=== PATIENT | male | born 1995 | race Caucasian/White ===

== ENCOUNTER 2017-06-26 11:23 | Emergency (ER) | payer SELFPAY ==
[~2017-06-26] VITALS: Ht 167.6 cm; Wt 59.0 kg
[~2017-06-26 11:23] MED LIST: CIPR500T4 PO; LISD30CA; MELA1TAB9; [UNRECOGNIZED DRUG - REMARK]
--- OUTSIDE RECORDS SUMMARY | 2017-06-26 11:29 | XMS REPORT ---
Author Author KRISTYN GODOY Organization [employer] Address Unknown Phone Unavailable Care Team Providers Care [employer] Name Role Phone KRISTYN GODOY CP Unavailable Allergies, Adverse Reactions, Alerts Substance Reaction Event Type N.K.D.A. Info Not Available Non Drug Allergy Problems Problem Type Condition Code Onset Dates Condition Status Problem Bipolar disorder, unspecified 296.80 Active Assessment General medical exam Z00.00 Active Problem Health examination of defined subpopulation V70.5 Active Assessment History of ADHD Z86.59 Active Medications No Known Medications Procedures Procedure Coding System Code Date VISUAL ACUITY SCREEN CPT-4 17361 Aug 25, 2015 Office Visit, Est Pt., Level 3 CPT-4 83479 Aug 25, 2015 AUDIOMETRY-SCREEN CPT-4 53224 Aug 25, 2015 Vital Signs Date/Time: Aug 25, 2015 Temperature 97.9 F Weight 128.1 lbs Height 66 in Hearing Right ear: 1000:P, 2000:P, 4000:P, 6000:P, Left ear: 1000:P, 2000:P, 4000:P, 6000:P P / L Blood Pressure Diastolic 68 mmHg Blood Pressure Systolic 106 mmHg Cardiac Monitoring Heart Rate 70 bpm BMI 20.67 Index Results No Known Results Summary Purpose [employer] Submission
--- NOTE | 2017-06-26 11:42 | ED Integumentary General ---
General Chief Complaint: Allergic Reaction Stated Complaint: ALLERGIC REACTION RIGHT EYE SWELLING, MOUTH SWELLI Nursing Triage Note: c/o hives and facial swelling. Denies difficulty breathing. Onset last night. Spent the night at a friends house. Source: patient Exam Limitations: no limitations History of Present Illness Time seen by provider: 11:40 Initial Comments To ER with reports of facial swelling and allergic reaction. This began last night. He spent the night at a friend's house. Timing/Duration: this morning Allergies and Home Medications Allergies Coded Allergies: NKANo Known Allergies (Verified Allergy, Unknown, 12/30/08) Home Medications Ciprofloxacin HCl 500 Mg Tablet, 500 MG PO BID, #13 Ref 0 Prescribed by: DULCE MARIA PIERCE on 08/06/16 0229 Constitutional: see HPI EENTM: see HPI Respiratory: no symptoms reported Cardiovascular: no symptoms reported Genitourinary: no symptoms reported Musculoskeletal: no symptoms reported Skin: see HPI Psychiatric/Neurological: No Symptoms Reported Endocrine: No Symptoms Reported Hematologic/Lymphatic: No Symptoms Reported Past Nqskguy-Drmlre-Jbnsdq Hx Patient Social History Alcohol Use: Occasionally Uses Recreational Drug Use: No Smoking Status: Current Everyday Smoker Type Used: Cigarettes Recent Foreign Travel: No Contact w/Someone Who Travel: No Recent Infectious Disease Expo: No Recent Hopitalizations: No Seasonal Allergies Seasonal Allergies: No Surgeries History of Surgeries: Yes (LYMPH NODE REMOVAL) Respiratory History of Respiratory Disorde: No Cardiovascular History of Cardiac Disorders: No Neurological History of Neurological Disord: No Reproductive System Hx Reproductive Disorders: No Sexually Transmitted Disease: No Gastrointestinal History of Gastrointestinal Di: No Musculoskeletal History of Musculoskeletal Dis: No Endocrine History of Endocrine Disorders: No Blood Transfusions History of Blood Disorders: No Family Medical History Significant Family History: No Pertinent Family Hx Physical Exam Vital Signs Vital Sign - Last 12Hours 06/26/17 11:34 Temp 98.1 Pulse 70 Resp 18 B/P (MAP) 109/81 Pulse Ox 98 O2 Delivery Room Air Capillary Refill : Less Than 3 Seconds General Appearance: WD/WN, no apparent distress HEENT: PERRL/EOMI, normal ENT inspection Neck: non-tender, full range of motion Respiratory: normal breath sounds, no respiratory distress, no accessory muscle use Gastrointestinal: normal bowel sounds, non tender, soft Neurologic/Psychiatric: alert, normal mood/affect, oriented x 3 Skin: normal color, warm/dry Skin Problem Character: other (linear groupings of erythematous papules about 1 cm in diameter consistent with bedbug bites on each of his scapula. There is one on his right eyebrow and forehead.) Progress/Results/Core Measures Results/Orders Vital Signs/I&O Vital Sign - Last 12Hours 06/26/17 11:34 Temp 98.1 Pulse 70 Resp 18 B/P (MAP) 109/81 Pulse Ox 98 O2 Delivery Room Air Blood Pressure Mean: 90 Departure Impression Impression: Primary Impression: Bedbug bite Disposition: HOME, SELF-CARE Condition: Stable Departure-Patient Inst. Decision time for Depature: 11:42 Referrals: NO,LOCAL PHYSICIAN (PCP/Family) Primary Care Physician Patient Instructions: Insect Bites and Stings (DC) Add. Discharge Instructions: 1. You should have your house checked and sprayed for bedbug 2. You should use [id number] topical hydrocortisone cream applied to these bites as well 3. Return to ER for any concerns 4. Use Benadryl [id number] as needed for itching All discharge instructions reviewed with patient and/or family. Voiced understanding. WILNER HIGGINBOTHAM APRN Jun 26, 2017 11:42
[2017-06-26] MEDS ORDERED: diphenhydrAMINE 50 MG/ML INJ (BENADRYL) IM ONE (11:45)
[2017-06-26] MEDS ORDERED: DEXAMETHASONE 10 MG/ML (DECADRON) 1 ML VIAL ONE (11:45)
[2017-06-26] MEDS ORDERED: DEXAMETHASONE PF 10 MG/ML (DECADRON) VIAL IM ONE (11:45)
[2017-06-26 12:07] VITALS: BP 106/80
== END 2017-06-26 12:07 | disposition home or self-care (01) ==
LOC: EDUNIT# 11:23 → ER 11:25
DX: S00.86XA Insect bite (nonvenomous) of other part of head, initial encounter (principal); F17.210 Nicotine dependence, cigarettes, uncomplicated; W57.XXXA Bitten or stung by nonvenomous insect and other nonvenomous arthropods, initial encounter
CPT/HCPCS: 96372; 99284

== ENCOUNTER 2017-10-15 16:00 | Emergency (ER) | payer SELFPAY ==
[~2017-10-15] VITALS: Ht 167.6 cm; Wt 54.4 kg
--- OUTSIDE RECORDS SUMMARY | 2017-10-15 16:05 | XMS REPORT | Continuity of Care Document ---
Author Author [facility] Address Unknown Phone Unavailable Allergies Active Description Code Type Severity Reaction Onset Reported/Identified Relationship to Patient Clinical Status Yes NKANo Known Allergies NKA Miscellaneous Allergy Unknown N/A 12/30/2008 Medications There is no data. Problems Date Dx Coded Attending Type Code Diagnosis Diagnosed By 08/11/2008 KOFI WRIGHT APRN 461.9 SINUSITIS ACUTE 08/11/2008 KOFI WRIGHT APRN 786.2 COUGH 12/02/2008 KOFI WRIGHT APRN 785.6 swollen glands in the neck 12/02/2008 KOFI WRIGHT APRN 786.05 shortness of breath 04/09/2009 KOFI WRIGHT APRN 813.05 CLOSED FRACTURE OF HEAD OF RADIUS 04/09/2009 KOFI WRIGHT APRN 910.0 ABRASION OR FRICTION BURN OF FACE NECK AND SCALP EXCEPT EYE WITHOUT INFECTION 04/09/2009 KOFI WRIGHT APRN 912.0 ABRASION OR FRICTION BURN OF SHOULDER AND UPPER ARM WITHOUT INFECTION 05/12/2009 KOFI WRIGHT APRN 313.81 OPPOSITIONAL DEFIANT DISORDER OF CHILDHOOD 05/12/2009 KOFI WRIGHT APRN 314.01 ADHD, COMBINED TYPE 05/12/2009 KOFI WRIGHT APRN 780.2 PRESYNCOPE SYNDROME 05/12/2009 KOFI WRIGHT APRN V03.89 MENINGOCOCCAL, OTHER SPECIFIED SINGLE BACTERIAL DISEASE 05/12/2009 KOFI WRIGHT APRN V05.3 HEPATITIS VIRAL/ALL 05/12/2009 KOFI WRIGHT APRN V20.2 visit for: well child visit 12/26/2009 KOFI WRIGHT APRN V70.3 SPORTS/SCHOOL EXAM 09/20/2012 KOFI WRIGHT APRN 296.80 MO BIPOLAR NOS 12/21/2015 EDER RODRIGUEZ, MYRON Emmanuel Ot S81.851A OPEN BITE, RIGHT LOWER LEG, INITIAL ENCO 12/21/2015 EDER RODRIGUEZ, MYRON Emmanuel Ot W57.XXXA BIT/STUNG BY NONVENOM INSECT OTH NONVE 12/21/2015 EDER RODRIGUEZ, MYRON Emmanuel Ot Y99.8 OTHER EXTERNAL CAUSE STATUS 08/06/2016 DULCE MARIA PIERCE MD Ot F17.210 NICOTINE DEPENDENCE, CIGARETTES, UNCOMPL 08/06/2016 DULCE MARIA PIERCE MD Ot N20.0 CALCULUS OF KIDNEY 08/06/2016 DULCE MARIA PIERCE MD Ot N39.0 URINARY TRACT INFECTION, SITE NOT SPECIF 08/06/2016 DULCE MARIA PIERCE MD Ot R31.0 GROSS HEMATURIA 09/26/2016 ADEBAYO RODRIGUEZ, REG Galvez Ot F17.210 NICOTINE DEPENDENCE, CIGARETTES, UNCOMPL 09/26/2016 ADEBAYO RODRIGUEZ, REG Galvez Ot N13.2 HYDRONEPHROSIS WITH RENAL AND URETERAL C 09/26/2016 ADEBAYO RODRIGUEZ, REG Galvez Ot R10.31 RIGHT LOWER QUADRANT PAIN 09/26/2016 REG FIORE MD Ot R31.9 HEMATURIA, UNSPECIFIED 09/27/2016 ADEBAYO RODRIGUEZ, REG Galvez Ot F17.210 NICOTINE DEPENDENCE, CIGARETTES, UNCOMPL 09/27/2016 ADEBAYO RODRIGUEZ, REG Galvez Ot N13.2 HYDRONEPHROSIS WITH RENAL AND URETERAL C 09/27/2016 REG FIORE MD Ot R10.31 RIGHT LOWER QUADRANT PAIN 09/27/2016 ADEBAYO RODRIGUEZ, REG Galvez Ot R31.9 HEMATURIA, UNSPECIFIED 06/26/2017 WILNER HIGGINBOTHAM APRN Ot F17.210 NICOTINE DEPENDENCE, CIGARETTES, UNCOMPL 06/26/2017 WILNER HIGGINBOTHAM APRN Ot L50.9 URTICARIA, UNSPECIFIED 06/26/2017 WILNER HIGGINBOTHAM APRN Ot S00.86XA INSECT BITE (NONVENOMOUS) OF OTHER PART 06/26/2017 WILNER HIGGINBOTHAM APRN Ot W57.XXXA BIT/STUNG BY NONVENOM INSECT OTH NONVE Procedures Code [place] [address] PSYCH DIAG INTER EXAM 09/20/2012 Results Test Result Range Complete urinalysis with reflex to culture - 08/06/16 00:57 Urine color determination RED NRG Urine clarity determination SLIGHTLY CLOUDY NRG Urine pH measurement by test strip 8 5-9 Specific gravity of urine by test strip 1.015 1.016- 1.022 Urine protein assay by test strip, semi-quantitative 3+ NEGATIVE Urine glucose detection by automated test strip NEGATIVE NEGATIVE Erythrocytes detection in urine sediment by light microscopy 5+ NEGATIVE Urine ketones detection by automated test strip NEGATIVE NEGATIVE Urine nitrite detection by test strip NEGATIVE NEGATIVE Urine total bilirubin detection by test strip NEGATIVE NEGATIVE Urine urobilinogen measurement by automated test strip (mass/volume) 1 mg/dL NORMAL Urine leukocyte esterase detection by dipstick 2+ NEGATIVE Automated urine sediment erythrocyte count by microscopy (number/high power field) TNTC NRG Automated urine sediment leukocyte count by microscopy (number/high power field ) [HPF] NRG Bacteria detection in urine sediment by light microscopy TRACE NRG Squamous epithelial cells detection in urine sediment by light microscopy 0-2 NRG Crystals detection in urine sediment by light microscopy NONE NRG Casts detection in urine sediment by light microscopy NONE NRG Mucus detection in urine sediment by light microscopy NEGATIVE NRG Complete urinalysis with reflex to culture NO NRG Complete blood count (CBC) with automated white blood cell (WBC) differential - 08/06/16 01:30 Blood leukocytes automated count (number/volume) 7.0 10*3/uL 4.3-11.0 Blood erythrocytes automated count (number/volume) 5.39 10*6/uL 4.35-5.85 Venous blood hemoglobin measurement (mass/volume) 14.2 g/dL 13.3-17.7 Blood hematocrit (volume fraction) 43 % 40-54 Automated erythrocyte mean corpuscular volume 79 [foz_us] 80-99 Automated erythrocyte mean corpuscular hemoglobin (mass per erythrocyte) 26 pg 25-34 Automated erythrocyte mean corpuscular hemoglobin concentration measurement ( mass/volume) 33 g/dL 32-36 Automated erythrocyte distribution width ratio 14.1 % 10.0-14.5 Automated blood platelet count (count/volume) 171 10*3/uL 130-400 Automated blood platelet mean volume measurement 11.3 [foz_us] 7.4-10.4 Automated blood neutrophils/100 leukocytes 54 % 42-75 Automated blood lymphocytes/100 leukocytes 38 % 12-44 Blood monocytes/100 leukocytes 6 % 0-12 Automated blood eosinophils/100 leukocytes 1 % 0-10 Automated blood basophils/100 leukocytes 1 % 0-10 Blood neutrophils automated count (number/volume) 3.8 10*3 1.8-7.8 Blood lymphocytes automated count (number/volume) 2.7 10*3 1.0-4.0 Blood monocytes automated count (number/volume) 0.4 10*3 0.0-1.0 Automated eosinophil count 0.1 10*3/uL 0.0-0.3 Automated blood basophil count (count/volume) 0.0 10*3/uL 0.0-0.1 Comprehensive metabolic panel - 08/06/16 01:30 Serum or plasma sodium measurement (moles/volume) 140 mmol/L 135-145 Serum or plasma potassium measurement (moles/volume) 3.8 mmol/L 3.6-5.0 Serum or plasma chloride measurement (moles/volume) 104 mmol/L 98-107 Carbon dioxide 26 mmol/L 21-32 Serum or plasma anion gap determination (moles/volume) 10 mmol/L 5-14 Serum or plasma urea nitrogen measurement (mass/volume) 12 mg/dL 7-18 Serum or plasma creatinine measurement (mass/volume) 1.03 mg/dL 0.60-1.30 Serum or plasma urea nitrogen/creatinine mass ratio 12 NRG Serum or plasma creatinine measurement with calculation of estimated glomerular filtration rate > NRG Serum or plasma glucose measurement (mass/volume) 72 mg/dL 70-105 Serum or plasma calcium measurement (mass/volume) 10.2 mg/dL 8.5-10.1 Serum or plasma total bilirubin measurement (mass/volume) 0.4 mg/dL 0.1-1.0 Serum or plasma alkaline phosphatase measurement (enzymatic activity/volume) 61 U/L 40-136 Serum or plasma aspartate aminotransferase measurement (enzymatic activity/ volume) 26 U/L 5-34 Serum or plasma alanine aminotransferase measurement (enzymatic activity/volume ) 20 U/L 0-55 Serum or plasma protein measurement (mass/volume) 7.9 g/dL 6.4-8.2 Serum or plasma albumin measurement (mass/volume) 4.9 g/dL 3.2-4.5 Complete blood count (CBC) with automated white blood cell (WBC) differential - 09/26/16 14:53 Blood leukocytes automated count (number/volume) 15.6 10*3/uL 4.3-11.0 Blood erythrocytes automated count (number/volume) 5.47 10*6/uL 4.35-5.85 Venous blood hemoglobin measurement (mass/volume) 14.3 g/dL 13.3-17.7 Blood hematocrit (volume fraction) 44 % 40-54 Automated erythrocyte mean corpuscular volume 80 [foz_us] 80-99 Automated erythrocyte mean corpuscular hemoglobin (mass per erythrocyte) 26 pg 25-34 Automated erythrocyte mean corpuscular hemoglobin concentration measurement ( mass/volume) 33 g/dL 32-36 Automated erythrocyte distribution width ratio 14.3 % 10.0-14.5 Automated blood platelet count (count/volume) 192 10*3/uL 130-400 Automated blood platelet mean volume measurement 11.4 [foz_us] 7.4-10.4 Automated blood neutrophils/100 leukocytes 79 % 42-75 Automated blood lymphocytes/100 leukocytes 14 % 12-44 Blood monocytes/100 leukocytes 6 % 0-12 Automated blood eosinophils/100 leukocytes 1 % 0-10 Automated blood basophils/100 leukocytes 0 % 0-10 Blood neutrophils automated count (number/volume) 12.3 10*3 1.8-7.8 Blood lymphocytes automated count (number/volume) 2.2 10*3 1.0-4.0 Blood monocytes automated count (number/volume) 0.9 10*3 0.0-1.0 Automated eosinophil count 0.2 10*3/uL 0.0-0.3 Automated blood basophil count (count/volume) 0.0 10*3/uL 0.0-0.1 Comprehensive metabolic panel - 09/26/16 14:53 Serum or plasma sodium measurement (moles/volume) 142 mmol/L 135-145 Serum or plasma potassium measurement (moles/volume) 3.8 mmol/L 3.6-5.0 Serum or plasma chloride measurement (moles/volume) 110 mmol/L 98-107 Carbon dioxide 24 mmol/L 21-32 Serum or plasma anion gap determination (moles/volume) 8 mmol/L 5-14 Serum or plasma urea nitrogen measurement (mass/volume) 18 mg/dL 7-18 Serum or plasma creatinine measurement (mass/volume) 1.06 mg/dL 0.60-1.30 Serum or plasma urea nitrogen/creatinine mass ratio 17 NRG Serum or plasma creatinine measurement with calculation of estimated glomerular filtration rate > NRG Serum or plasma glucose measurement (mass/volume) 103 mg/dL 70-105 Serum or plasma calcium measurement (mass/volume) 9.2 mg/dL 8.5-10.1 Serum or plasma total bilirubin measurement (mass/volume) 0.3 mg/dL 0.1-1.0 Serum or plasma alkaline phosphatase measurement (enzymatic activity/volume) 51 U/L 40-136 Serum or plasma aspartate aminotransferase measurement (enzymatic activity/ volume) 23 U/L 5-34 Serum or plasma alanine aminotransferase measurement (enzymatic activity/volume ) 16 U/L 0-55 Serum or plasma protein measurement (mass/volume) 7.3 g/dL 6.4-8.2 Serum or plasma albumin measurement (mass/volume) 4.3 g/dL 3.2-4.5 Lipase - 09/26/16 14:53 Lipase 20 U/L 8-78 Blood manual differential performed detection - 09/26/16 14:53 Blood monocytes/100 leukocytes 7 % NRG Manual blood segmented neutrophils/100 leukocytes 82 % NRG Blood band neutrophils/100 leukocytes 0 % NRG Manual blood lymphocytes/100 leukocytes 11 % NRG Manual eosinophils/100 leukocytes in nose 0 % NRG Manual blood basophils/100 leukocytes 0 % NRG Blood erythrocyte morphology finding identification NORMAL NRG Complete urinalysis with reflex to culture - 09/26/16 16:55 Urine color determination YELLOW NRG Urine clarity determination CLEAR NRG Urine pH measurement by test strip 5 5-9 Specific gravity of urine by test strip 1.010 1.016- 1.022 Urine protein assay by test strip, semi-quantitative 1+ NEGATIVE Urine glucose detection by automated test strip NEGATIVE NEGATIVE Erythrocytes detection in urine sediment by light microscopy 5+ NEGATIVE Urine ketones detection by automated test strip 1+ NEGATIVE Urine nitrite detection by test strip NEGATIVE NEGATIVE Urine total bilirubin detection by test strip NEGATIVE NEGATIVE Urine urobilinogen measurement by automated test strip (mass/volume) NORMAL NORMAL Urine leukocyte esterase detection by dipstick NEGATIVE NEGATIVE Automated urine sediment erythrocyte count by microscopy (number/high power field) [HPF] NRG Automated urine sediment leukocyte count by microscopy (number/high power field ) RARE NRG Bacteria detection in urine sediment by light microscopy NEGATIVE NRG Squamous epithelial cells detection in urine sediment by light microscopy 5-10 NRG Crystals detection in urine sediment by light microscopy NONE NRG Casts detection in urine sediment by light microscopy NONE NRG Mucus detection in urine sediment by light microscopy NEGATIVE NRG Complete urinalysis with reflex to culture NO NRG Encounters ACCT No. Visit Date/Time Discharge Status Pt. Type Provider Facility Loc./Unit Complaint [id number] 09/20/2012 09:49:00 09/20/2012 23:59:59 [facility] Outpatient WRIGHT NEPTALIKOFI [id number] 06/26/2017 11:25:00 06/26/2017 12:07:00 DIS Emergency WILNER HIGGINBOTHAM APRN [facility] ER ALLERGIC REACTION RIGHT EYE SWELLING, MOUTH SWELLI [id number] 09/26/2016 14:45:00 09/26/2016 17:51:00 DIS Emergency ADEBAYO RODRIGUEZ, REG Galvez [facility] ER SIDE PAIN/VOMITING [id number] 08/06/2016 00:53:00 08/06/2016 02:33:00 DIS Emergency STAN RODRIGUEZ, DULCE MARIA Elizabeth [facility] ER BLOOD IN URINE [id number] 12/21/2015 19:05:00 12/21/2015 21:41:00 DIS Emergency EDER RODRIGUEZ, MYRON Emmanuel [facility] ER POSS SPIDER BITES R LEG
[2017-10-15] MEDS ORDERED: ONDANSETRON 4 MG (ZOFRAN) ORAL DISSOLVE TAB SL STA (17:02)
--- NOTE | 2017-10-15 17:07 | ED GI ---
General Chief Complaint: Abdominal/GI Problems Stated Complaint: VOMITING/DIARRHEA Nursing Triage Note: pt c/o n/v/d with abd cramping since 0700. reports he had taco camejo last night at approx midnight. 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 Sepsis Screen: No Definite Risk Source of Information: Patient Exam Limitations: No Limitations History of Present Illness Time Seen By Provider: 17:07 Initial Comments 22-year-old male patient presents to the emergency department with complaints of nausea, vomiting, diarrhea, and generalized abdominal cramping starting at 0700 today. Patient reports eating to the camejo last night, but otherwise felt okay. He was able to drink 16 ounces of water just prior to coming to the emergency department without vomiting. Timing/Duration: Other (0700 this AM) Severity/Quality: Cramping Location: Generalized Abdomen Radiation: No Radiation Activities at Onset: None Modifying Factors: Worsens With Eating Allergies and Home Medications Allergies Coded Allergies: NKANo Known Allergies (Verified Allergy, Unknown, 12/30/08) Home Medications Hyoscyamine Sulfate 0.125 Mg Tab.subl, 0.125 MG SL Q4H PRN for CRAMPS, #14 Ref 0 Prescribed by: ELLA TAVARES on 10/15/171747 Ondansetron 8 Mg Tab.rapdis, 8 MG PO Q6H PRN for NAUSEA/VOMITING-1ST LINE, #10 Ref 0 Prescribed by: ELLA TAVARES on 10/15/171747 Review of Systems Constitutional: chills, No dizziness, No fever, malaise EENTM: No Symptoms Reported Respiratory: Denies Cough, Denies Shortness of Air Cardiovascular: No Symptoms Reported Gastrointestinal: Denies Abdomen Distended, Abdominal Pain (generalized abdominal cramping), Denies Blood Streaked Stools, Denies Constipated, Diarrhea , Nausea, Poor Appetite, Poor Fluid Intake, Denies Rectal Bleeding, Vomiting Genitourinary: Denies Burning, Denies Discharge, Denies Frequency, Denies Flank Pain, Denies Hematuria Musculoskeletal: no symptoms reported Skin: no symptoms reported Psychiatric/Neurological: No Symptoms Reported All Other Systems Reviewed Negative Unless Noted: Yes (Negative excepted noted.) Past Indiagn-Pgikan-Qlfqmb Hx Patient Social History Alcohol Use: Occasionally Uses Recreational Drug Use: No Smoking Status: Current Everyday Smoker Type Used: Cigarettes Recent Foreign Travel: No Contact w/Someone Who Travel: No Recent Infectious Disease Expo: No Recent Hopitalizations: No Physical Abuse: No Sexual Abuse: No Mistreated: No Fear: No Seasonal Allergies Seasonal Allergies: No Surgeries History of Surgeries: Yes (LYMPH NODE REMOVAL) Respiratory History of Respiratory Disorde: No Cardiovascular History of Cardiac Disorders: No Neurological History of Neurological Disord: Yes Neurological Disorders: Traumatic Brain Injury Reproductive System Hx Reproductive Disorders: No Sexually Transmitted Disease: No Genitourinary History of Genitourinary Disor: Yes Genitourinary Disorders: Kidney Stones Gastrointestinal History of Gastrointestinal Di: No Musculoskeletal History of Musculoskeletal Dis: No Endocrine History of Endocrine Disorders: No Psychosocial Suicide Risk Score: 0 Blood Transfusions History of Blood Disorders: No Reviewed Nursing Assessment Reviewed/Agree w Nursing PMH: Yes Family Medical History Significant Family History: No Pertinent Family Hx Physical Exam Vital Signs VS - Last 72 Hours, by Label 10/15/17 10/15/17 16:40 18:15 Temp 99.1 Pulse 80 84 Resp 16 16 B/P (MAP) 126/79 (95) Pulse Ox 98 Capillary Refill : Less Than 3 Seconds General Appearance: WD/WN, no apparent distress HEENT: PERRL/EOMI, pharynx normal Neck: supple, normal inspection Respiratory: lungs clear, normal breath sounds, no respiratory distress, no accessory muscle use Cardiovascular: normal peripheral pulses, regular rate, rhythm, no edema, no murmur Gastrointestinal: normal bowel sounds, non tender, soft, no organomegaly, No distended Extremities: no pedal edema, normal capillary refill Back: normal inspection, no CVA tenderness Neurologic/Psychiatric: alert, normal mood/affect, oriented x 3 Skin: normal color, warm/dry Progress/Results/Core Measures Results/Orders Lab Results Laboratory Tests Test 10/15/17 17:40 Range/Units Urine Color YELLOW Urine Clarity CLEAR Urine pH 6 5-9 Urine Specific [place] 1.015 L 1.016-1.022 Urine Protein 1+ H NEGATIVE Urine Glucose (UA) NEGATIVE NEGATIVE Urine Ketones NEGATIVE NEGATIVE Urine Nitrite NEGATIVE NEGATIVE Urine Bilirubin NEGATIVE NEGATIVE Urine Urobilinogen NORMAL NORMAL MG/DL Urine Leukocyte Esterase 1+ H NEGATIVE Urine RBC (Auto) NEGATIVE NEGATIVE Urine RBC NONE /HPF Urine WBC RARE /HPF Urine Squamous Epithelial Cells 10-25 H /HPF Urine Crystals NONE /LPF Urine Bacteria TRACE /HPF Urine Casts NONE /LPF Urine Mucus MODERATE H /LPF Urine Culture Indicated NO My Orders Orders - ELLA TAVARES Ua Culture If Indicated (10/15/17 17:02) Ondansetron Oral Dissolve Tab (Zofran (10/15/17 17:02) Hyoscyamine Sl Tablet (Levsin Sl Tablet) (10/15/17 17:15) Rx-Ondansetron Po (Rx-Zofran Po) (10/15/17 18:03) Rx-Hyoscyamine Tab (Rx-Levsin Sl) (10/15/17 18:03) Medications Given in ED Current Medications Medications Dose Ordered Sig/Marques Route Start Time Stop Time Status Last Admin Dose Admin Hyoscyamine Sulfate 0.125 mg ONCE ONCE SL 10/15/17 17:15 10/15/17 17:16 DC 10/15/17 17:10 0.125 MG Vital Signs/I&O Vital Sign - Last 12Hours 10/15/17 10/15/17 16:40 18:15 Temp 99.1 Pulse 80 84 Resp 16 16 B/P (MAP) 126/79 (95) Pulse Ox 98 Blood Pressure Mean: 95 Departure Communication (Admissions) Progress Notes patient seen and evaluated. Patient given 1 dose of Zofran and Levsin in the emergency department. No vomiting noted or diarrhea in the emergency department. Patient was able to drink without difficulty. Abdomen remained nontender. Proceed with discharge to home. Impression Impression: Primary Impression: Nausea, vomiting, and diarrhea Additional Impression: Abdominal cramping Disposition: 01 HOME, SELF-CARE Condition: Improved Departure-Patient Inst. Decision time for Depature: 17:46 Referrals: NO,LOCAL PHYSICIAN (PCP/Family) Primary Care Physician Patient Instructions: Dehydration, Adult (DC), [id number] Add. Discharge Instructions: All discharge instructions reviewed with patient and/or family. Voiced understanding. Medications as directed. Clear Liquid diet until symptoms improve, then increase diet slowly to a low-fat, bland diet. Tylenol extra strength over-the- counter as directed for pain. Ibuprofen 800 mg by mouth every 8 hours as needed for pain. Follow-up with your primary care provider for recheck as an outpatient if no improvement in symptoms. Return to the emergency department for worsened symptoms or any other concerns. Scripts Hyoscyamine Sulfate (Levsin-Sl) 0.125 Mg Tab.subl 0.125 MG SL Q4H Y for CRAMPS, #14 TAB 0 Refills Prov: ELLA TAVARES 10/15/17 Ondansetron (Ondansetron Odt) 8 Mg Tab.rapdis 8 MG PO Q6H Y for NAUSEA/VOMITING-1ST LINE, #10 TAB 0 Refills Prov: ELLA TAVARES 10/15/17 Work/School Note: Local Medical Staff Listing ELLA TAVARES Oct 15, 2017 17:07
[2017-10-15] MEDS ORDERED: HYOSCYAMINE 0.125 MG (LEVSIN) TAB SL ONE (17:15)
[2017-10-15 17:46] LABS: BILIRUBIN,URINE NEGATIVE (NEGATIVE); KETONES,URINE NEGATIVE (NEGATIVE); LEUKOCYTE ESTERASE ,URINE 1+ (NEGATIVE); NITRITE,URINE NEGATIVE (NEGATIVE); PH,URINE 6 (5-9); PROTEIN,URINE 1+ (NEGATIVE); UROBILINOGEN,URINE NORMAL (NORMAL)
[2017-10-15] MEDS ORDERED: ONDA8TAB13 PO (17:48)
[2017-10-15] MEDS ORDERED: HYOS0.1283 SL (17:48)
[2017-10-15 17:53] LABS: WBC,URINE RARE /HPF
[2017-10-15] MEDS ORDERED: RX-HYOSCYAMINE 0.125 MG SL (LEVSIN) PPK#6 SL STA (18:03)
[2017-10-15] MEDS ORDERED: RX-ONDANSETRON 4 MG ODT (ZOFRAN) PPK #4 PO STA (18:03)
[2017-10-15 18:15] VITALS: BP 118/79
== END 2017-10-15 18:15 | disposition home or self-care (01) ==
LOC: EDUNIT# 16:00 → ER 16:01
DX: R11.2 Nausea with vomiting, unspecified (principal); R19.7 Diarrhea, unspecified; R10.84 Generalized abdominal pain; F17.210 Nicotine dependence, cigarettes, uncomplicated; Z87.820 Personal history of traumatic brain injury; Z87.442 Personal history of urinary calculi
CPT/HCPCS: 81000; 99283

== ENCOUNTER → 2018-05-07 | Day surgery (SDC) | payer OTHER ==
[~2018-05-07] VITALS: Ht 170.2 cm; Wt 56.7 kg
[~2018-05-07] MED LIST changes: +HYOS0.1283 SL; +LACTATED RINGERS 1,000 ML IV ONE; +LACTATED RINGERS 1,000 ML IV STA; +MIDAZOLAM 2 MG/2 ML (VERSED) VIAL ONE; +ONDA8TAB13 PO; +ONDANSETRON 4 MG/2 ML (SDV) Z0FRAN ONE; +SEVOFLURANE (ULTANE) 15 ML INHAL SOLN ONE; +SUCCINYLCHOLINE INJ 100 MG/5 ML SYR ONE; +fentaNYL INJECTION 100 MCG/2 ML AMP ONE; +proPOfol 200 MG/20 ML (DIPRIVAN) VIAL IV ONE
--- OUTSIDE RECORDS SUMMARY | 2018-05-07 15:00 | XMS REPORT | Continuity of Care Document ---
Author Author [facility] C[facility] of [facility] Ctr [facility] Address Unknown Phone Unavailable Allergies Active [...] Procedures Code [place] [address] PSYCH DIAG INTER EXAM 09/20/2012 Results Test [...] with reflex to culture NO NRG Complete urinalysis with reflex to culture - 10/15/17 17:40 Urine color determination YELLOW NRG Urine clarity determination CLEAR NRG Urine pH measurement by test strip 6 5-9 Specific gravity of urine by test strip 1.015 1.016- 1.022 Urine protein assay by test strip, semi-quantitative 1+ NEGATIVE Urine glucose detection by automated test strip NEGATIVE NEGATIVE Erythrocytes detection in urine sediment by light microscopy NEGATIVE NEGATIVE Urine ketones detection by automated test strip NEGATIVE NEGATIVE Urine nitrite detection by test strip NEGATIVE NEGATIVE Urine total bilirubin detection by test strip NEGATIVE NEGATIVE Urine urobilinogen measurement by automated test strip (mass/volume) NORMAL NORMAL Urine leukocyte esterase detection by dipstick 1+ NEGATIVE Automated urine sediment erythrocyte count by microscopy (number/high power field) NONE NRG Automated urine sediment leukocyte count by microscopy (number/high power field ) RARE NRG Bacteria detection in urine sediment by light microscopy TRACE NRG Squamous epithelial cells detection in urine sediment by light microscopy 10-25 NRG Crystals detection in urine sediment by light microscopy NONE NRG Casts detection in urine sediment by light microscopy NONE NRG Mucus detection in urine sediment by light microscopy MODERATE NRG Complete urinalysis with reflex to culture NO NRG Encounters ACCT No. Visit Date/Time Discharge Status Pt. Type Provider Facility Loc./Unit Complaint [id number] 09/20/2012 09:49:00 09/20/2012 23:59:59 [facility] Outpatient KYLE GUNDERSONKOFI [id number] 10/15/2017 16:01:00 10/15/2017 18:15:00 DIS Emergency ELLA SUAREZ Via [facility] ER VOMITING/DIARRHEA [id number] 06/26/2017 11:25:00 06/26/2017 12:07:00 DIS Emergency WILNER HIGGINBOTHAM APRN Via [facility] ER ALLERGIC REACTION RIGHT EYE SWELLING, MOUTH SWELLI [id number] 09/26/2016 14:45:00 09/26/2016 17:51:00 DIS Emergency REG FIORE MD Via [facility] ER SIDE PAIN/VOMITING [id number] 08/06/2016 00:53:00 08/06/2016 02:33:00 DIS Emergency STAN RODRIGUEZ, DULCE MARIA Elizabeth Via [facility] ER BLOOD IN URINE [id number] 12/21/2015 19:05:00 12/21/2015 21:41:00 DIS Emergency EDER RODRIGUEZ, MYRON Emmanuel Via [facility] ER POSS SPIDER BITES R LEG
--- NOTE | 2018-05-07 15:43 | ED GI ---
General Chief Complaint: Foreign Body Stated Complaint: SWALLOWED A SCREW Source of Information: Patient Exam Limitations: No Limitations History of Present Illness Date Seen by Provider: May 07, 2018 Time Seen by Provider: 15:42 Initial Comments to ER by private vehicle with reports of having swallowed a screw about 1-1.5 inches in length 2 hours prior to arrival. No abdominal pain. No vomiting. this was accidental. He had the screw in his mouth and forgot about it then took a drink of water. Timing/Duration: 1-3 Hours Severity/Quality: Moderate Radiation: No Radiation Activities at Onset: None Associated Symptoms: Denies Symptoms Allergies and Home Medications Allergies Coded Allergies: NKANo Known Allergies (Verified Allergy, Unknown, 12/30/08) Home Medications Hyoscyamine Sulfate 0.125 Mg Tab.subl, 0.125 MG SL Q4H PRN for CRAMPS Prescribed by: ELLA TAVARES on 10/15/171747 Ondansetron 8 Mg Tab.rapdis, 8 MG PO Q6H PRN for NAUSEA/VOMITING-1ST LINE Prescribed by: ELLA TAVARES on 10/15/171747 Patient Home Medication List Home Medication List Reviewed: Yes Review of Systems Constitutional: see HPI EENTM: No Symptoms Reported Respiratory: No Symptoms Reported Cardiovascular: No Symptoms Reported Gastrointestinal: No Symptoms Reported Genitourinary: No Symptoms Reported Skin: no symptoms reported Psychiatric/Neurological: No Symptoms Reported Endocrine: No Symptoms Reported Hematologic/Lymphatic: No Symptoms Reported Past Hufwmkb-Kbigfe-Vsoirs Hx Patient Social History Type Used: Cigarettes Recent Foreign Travel: No Contact w/Someone Who Travel: No Recent Hopitalizations: No Seasonal Allergies Seasonal Allergies: No Past Medical History Surgeries: Yes (LYMPH NODE REMOVAL) Respiratory: No Cardiac: No Neurological: Yes Traumatic Brain Injury Reproductive Disorders: No Sexually Transmitted Disease: No Genitourinary: Yes Kidney Stones Gastrointestinal: No Musculoskeletal: No Endocrine: No Blood Disorders: No Family Medical History No Pertinent Family Hx Physical Exam Vital Signs Vital Signs - First Documented 05/07/18 15:39 Temp 96.9 Pulse 89 Resp 14 B/P (MAP) 104/66 (79) Pulse Ox 98 O2 Delivery Room Air Capillary Refill : Height/Weight/BMI Height: 5'6.00" Weight: 120lbs. oz. 54.571876pe; 18.79 BMI Method:Stated General Appearance: WD/WN, no apparent distress HEENT: PERRL/EOMI, normal ENT inspection Neck: non-tender, full range of motion Respiratory: no respiratory distress, no accessory muscle use Cardiovascular: regular rate, rhythm, no murmur Gastrointestinal: normal bowel sounds, non tender, soft Extremities: normal range of motion, non-tender Neurologic/Psychiatric: alert, normal mood/affect, oriented x 3 Skin: normal color, warm/dry Progress/Results/Core Measures Results/Orders My Orders Orders - WILNER HIGGINBOTHAM APRN Acute Abd Series (05/07/18 15:41) Iv Heplock-Insert (Order) (05/07/18 16:01) Vital Signs/I&O 05/07/18 15:39 Temp 96.9 Pulse 89 Resp 14 B/P (MAP) 104/66 (79) Pulse Ox 98 O2 Delivery Room Air Diagnostic Imaging Diagonstic Imaging: Xray Comments NAME: BARNEY ALLISON [facility] REC#: [id number] PT STATUS: REG ER : 1995 PHYSICIAN: WILNER HIGGINBOTHAM APRN ADMIT DATE: 05/07/18/ER Draft Date of Exam:05/07/18 ACUTE ABD SERIES EXAM: ACUTE ABD SERIES INDICATION: Swallowed screw at work. COMPARISON: CT abdomen pelvis with IV contrast 09/26/2016. FINDINGS: Radiopaque metallic foreign body in the stomach consistent with the screw. Nonspecific bowel gas pattern. No free intraperitoneal air. Normal heart size and pulmonary vascularity. No focal pulmonary opacity, pleural effusion or pneumothorax. No acute osseous findings. IMPRESSION: Metallic screw within the stomach. Nonspecific bowel gas pattern. Dictated on workstation # [id number] Dict: 05/07/18 1601 Trans: 05/07/18 1609 [facility] [id number] Interpreted by: TRISTON MAYES MD Electronically signed by: Departure Communication (Admissions) I relayed the x-ray findings to Dr. Kirkpatrick on-call for surgery. Plan to keep the patient here nothing by mouth and call endoscopy for an EGD. Impression Primary Impression: Foreign body in stomach Disposition: ADMITTED INPATIENT Condition: Stable Departure-Patient Inst. Referrals: NO,LOCAL PHYSICIAN (PCP/Family) Primary Care Physician WILNER HIGGINBOTHAM APRN May 07, 2018 15:43
--- NOTE | 2018-05-07 16:09 | Diagnostic Imaging Report ---
EXAM: ACUTE ABD SERIES INDICATION: Swallowed screw at work. COMPARISON: CT abdomen pelvis with IV contrast 09/26/2016. FINDINGS: Radiopaque metallic foreign body in the stomach consistent with the screw. Nonspecific bowel gas pattern. No free intraperitoneal air. Normal heart size and pulmonary vascularity. No focal pulmonary opacity, pleural effusion or pneumothorax. No acute osseous findings. IMPRESSION: Metallic screw within the stomach. Nonspecific bowel gas pattern. Dictated by: Dictated on workstation # [id number]
--- OUTSIDE RECORDS SUMMARY | 2018-05-07 16:49 | XMS REPORT | Continuity of Care Document ---
Author Author [facility] of [facility] Ctr [facility] Address Unknown Phone Unavailable Allergies Active Description [...] Procedures Code [place] [address] PSYCH DIAG INTER EXAM 09/20/2012 Results Test [...] Status Pt. Type Provider Facility Loc./Unit Complaint [id number] 09/20/2012 09:49:00 09/20/2012 23:59:59 [facility] Outpatient KYLE GUNDERSONKOFI [id number] 10/15/2017 16:01:00 10/15/2017 18:15:00 DIS Emergency ELLA SUAREZ Via [facility] ER VOMITING/DIARRHEA [id number] 06/26/2017 11:25:00 06/26/2017 12:07:00 DIS Emergency WILNER HIGGINBOTHAM APRN Via [facility] ER ALLERGIC REACTION RIGHT EYE SWELLING, MOUTH SWELLI [id number] 09/26/2016 14:45:00 09/26/2016 17:51:00 DIS Emergency REG FIORE MD Via [facility] ER SIDE PAIN/VOMITING [id number] 08/06/2016 00:53:00 08/06/2016 02:33:00 DIS Emergency STAN RODRIGUEZ, DULCE MARIA Elizabeth Via [facility] ER BLOOD IN URINE [id number] 12/21/2015 19:05:00 12/21/2015 21:41:00 DIS Emergency EDER RODRIGUEZ, MYRON Emmanuel Via [facility] ER POSS SPIDER BITES R LEG
[2018-05-07 18:20] VITALS: BP 105/70
[2018-05-07 18:45] VITALS: BP 108/71
[2018-05-07 18:50] VITALS: BP 108/71
--- NOTE | 2018-05-07 19:17 | Consultation ---
History of Present Illness History of Present Illness Patient Consulted On(cameron/time) 05/07/18 16:50 Date Seen by Provider: May 07, 2018 Time Seen by Provider: 16:50 History of Present Illness consult requested by Jayy Skinner for foreign body stomach. Patient is a 23 year old male who had a screw in his mouth and took a drink of water and accidentally swallowed the screw. Patient is not having any pain swallowing or in his abdomen. He has no other complaints. This occurred about 3 hours prior to me seeing him. He denies any nausea vomiting fever sweats chills shortness of breath or chest pain. I reviewed x rays demonstrating the foreign body in the stomach. Allergies and Home Medications Allergies Coded Allergies: NKANo Known Allergies (Verified Allergy, Unknown, 12/30/08) Home Medications Hyoscyamine Sulfate 0.125 Mg Tab.subl, 0.125 MG SL Q4H PRN for CRAMPS Prescribed by: ELLA TAVARES on 10/15/171747 Ondansetron 8 Mg Tab.rapdis, 8 MG PO Q6H PRN for NAUSEA/VOMITING-1ST LINE Prescribed by: ELLA TAVARES on 10/15/171747 Patient Home Medication List Home Medication List Reviewed: Yes Past Ojsvqce-Ivkqeb-Zrzukw Hx Patient Social History Alcohol Use: Rarely Uses Recreational Drug Use: No Smoking Status: Current Everyday Smoker Type Used: Cigarettes Recent Foreign Travel: No Contact w/Someone Who Travel: No Recent Infectious Disease Expo: No Recent Hopitalizations: No Seasonal Allergies Seasonal Allergies: No Surgeries History of Surgeries: Yes (LYMPH NODE REMOVAL) Respiratory History of Respiratory Disorde: No Cardiovascular History of Cardiac Disorders: No Neurological History of Neurological Disord: Yes Neurological Disorders: Traumatic Brain Injury Reproductive System Hx Reproductive Disorders: No Sexually Transmitted Disease: No Genitourinary History of Genitourinary Disor: Yes Genitourinary Disorders: Kidney Stones Gastrointestinal History of Gastrointestinal Di: No Musculoskeletal History of Musculoskeletal Dis: No Endocrine History of Endocrine Disorders: No HEENT History of HEENT Disorders: No Cancer History of Cancer: No Psychosocial History of Psychiatric Problem: No Blood Transfusions History of Blood Disorders: No Family Medical History Significant Family History: No Pertinent Family Hx Review of Systems-General All Other Systems Reviewed Negative Unless Noted: Yes (Negative excepted noted.) Physical Exam-General Problems Physical Exam Vital Signs Vital Signs - First Documented 05/07/18 05/07/18 15:39 16:48 Temp 96.9 Pulse 89 Resp 14 B/P (MAP) 104/66 (79) Pulse Ox 98 O2 Delivery Room Air O2 Flow Rate 0 Capillary Refill : Less Than 3 Seconds General Appearance: no apparent distress HEENT: PERRL/EOMI Neck: supple Respiratory: no respiratory distress, no accessory muscle use Cardiovascular: regular rate, rhythm Gastrointestinal: non tender, soft Back: normal inspection Extremities: normal inspection Neurologic/Psychiatric: alert, normal mood/affect Skin: warm/dry Lymphatic: no adenopathy Assessment/Plan Assessment/Plan Assessment/Plan ingestion of foreign body in stomach. patient 23 yr old male with screw in stomach. it appears to be still in the stomach from x rays. Patient was explained risks and benefits of EGD with retrieval he understands risks and benefits and wishes to proceed. To endoscopy for procedure. All questions were answered. MILADY ALMANZA DO May 07, 2018 19:17
--- NOTE | 2018-05-07 19:23 | Progress Note-Post Operative ---
Post-Operative Progess Note Surgeon (s)/Historic Sites Registrar (s) Surgeon MILADY ALMANZA DO Historic Sites Registrar: na Pre-Operative Diagnosis foreign body stomach Post-Operative Diagnosis same Procedure & Operative Findings Date of Procedure 05/07/18 Procedure Performed/Findings egd with retrieval foreign body of stomach Anesthesia Type general Estimated Blood Loss Estimated blood loss (mL): none Specimens/Packing Specimens Removed na MILADY ALMANZA DO May 07, 2018 19:23
--- NOTE | 2018-05-07 23:24 | OPERATIVE REPORT ---
DATE OF SERVICE: 05/07/2018 PREOPERATIVE DIAGNOSIS: Foreign body in stomach. POSTOPERATIVE DIAGNOSIS: Foreign body in stomach. PROCEDURE: EGD removal of foreign body of the stomach. SURGEON: DO Kaya. ANESTHESIA: General. ESTIMATED BLOOD LOSS: None. COMPLICATIONS: None. INDICATIONS: The patient is a 23-year-old male with a screw in his mouth took drink of water, swallowed the screw. The patient was brought to the Emergency Department for further evaluation. X-rays demonstrating the screw to be still in the stomach. Therefore, he was explained risks and benefits of having EGD and possible removal of foreign body. He understands risks and benefits and wished to proceed. Consent was signed in the chart. PROCEDURE: The patient was taken to the endoscopy suite, placed in the supine position. He was intubated for airway protection. The timeout was performed. Scope was inserted in mouth, down the esophagus and stomach where small amount of digestive food was present, which had to be irrigated and suctioned. The screw was able to be visualized within the stomach. A Basurto basket was then used to secure the screw and with the tip distally was then slowly removed completely from the patient. Once the Basurto basket was removed, the scope was then reinserted into the mouth down the esophagus into the stomach and into the duodenum without difficulty. There were no polyps, masses or ulcerations within the duodenum. Scope was slowly retracted back into the stomach, which was insufflated noting no other pathology. Scope was retroflexed noting no other pathology. Scope was returned to its normal position, withdrawn slowly. No polyps, mass or ulcerations within the esophagus. No injury visible. Scope was slowly retracted until completely removed. The patient tolerated procedure well without any complications and taken to recovery room in stable condition. Job ID: [id number] DocumentID: [id number] Dictated Date: 05/07/2018 19:27:06 Athletic Instructor Date: 05/07/2018 23:23:39 Dictated By: MILADY ALMANZA DO [facility]
== END | disposition home or self-care (01) ==
LOC: EDUNIT# 14:52 → ER 14:55 → ENDO 16:42
PROVIDERS: ATTEND Surgery
DX: T18.2XXA Foreign body in stomach, initial encounter (principal); F17.210 Nicotine dependence, cigarettes, uncomplicated; Z87.820 Personal history of traumatic brain injury; Z87.442 Personal history of urinary calculi
CPT/HCPCS: 74022

== ENCOUNTER 2022-01-08 03:34 | Emergency (ER) | payer OTHER ==
[~2022-01-08] VITALS: Ht 167.7 cm; Wt 57.2 kg
[~2022-01-08 03:34] MED LIST changes: -CIPR500T4 PO; +CIPR500T5 PO; -LACTATED RINGERS 1,000 ML IV ONE; -LACTATED RINGERS 1,000 ML IV STA; -MIDAZOLAM 2 MG/2 ML (VERSED) VIAL ONE; -ONDANSETRON 4 MG/2 ML (SDV) Z0FRAN ONE; -SEVOFLURANE (ULTANE) 15 ML INHAL SOLN ONE; -SUCCINYLCHOLINE INJ 100 MG/5 ML SYR ONE; -fentaNYL INJECTION 100 MCG/2 ML AMP ONE; -proPOfol 200 MG/20 ML (DIPRIVAN) VIAL IV ONE
[2022-01-08 03:50] VITALS: BP 132/79
[2022-01-08] MEDS ORDERED: TETANUS,DIPTH,PERTUSS P/F (BOOSTRIX) 0.5 ML VIAL IM ONE (04:15)
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
[2022-01-08] MEDS ORDERED: TRAM-42 PO (05:27)
[2022-01-08] MEDS ORDERED: CEFU500T63 PO (05:28)
--- NOTE | 2022-01-08 07:01 | Diagnostic Imaging Report ---
INDICATION: Left foot pain. TECHNIQUE: 3 views of the left foot CORRELATION STUDY: None FINDINGS: The osseous structures of the foot are intact. Joint spaces are maintained. Alignment anatomic. Soft tissues appearing unremarkable. IMPRESSION: 1. Negative for acute findings of the foot. Dictated by: Dictated on workstation # [id number]
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
== END 2022-01-08 05:59 | disposition home or self-care (01) ==
LOC: EDUNIT# 03:34 → ER 03:39
DX: S92.342A Displaced fracture of fourth metatarsal bone, left foot, initial encounter for closed fracture (principal); S05.11XA Contusion of eyeball and orbital tissues, right eye, initial encounter; F17.210 Nicotine dependence, cigarettes, uncomplicated; Z23 Encounter for immunization; Y04.2XXA Assault by strike against or bumped into by another person, initial encounter
CPT/HCPCS: 70450; 70486; 72125; 73630; 90471; 99283; L2114; 90715

== ENCOUNTER → 2022-01-19 | Outpatient (CLI) | payer OTHER ==
[~2022-01-19] MED LIST changes: +CEFU500T63 PO; +TRAM-42 PO
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
== END ==
LOC: ORTHO 09:08
PROVIDERS: ATTEND Orthopaedic Surgery
DX: S92.345A Nondisplaced fracture of fourth metatarsal bone, left foot, initial encounter for closed fracture (principal); X58.XXXA Exposure to other specified factors, initial encounter
CPT/HCPCS: 73630; G0463; 99203

== ENCOUNTER → 2022-02-07 | Outpatient (CLI) | payer OTHER ==
--- NOTE | 2022-02-07 10:57 | Diagnostic Imaging Report ---
Indication: Follow-up left foot fracture. Time of Exam: 9:20 AM 3 views of the left foot were obtained and compared with prior study from 01/19/2022. Prominent anterior talar beak is again noted. Alignment of the foot is normal. No fractures are identified. Metatarsals and phalanges are intact. IMPRESSION: No acute bony abnormalities detected. Dictated by: Dictated on workstation # [id number]
== END ==
LOC: ORTHO 09:13
PROVIDERS: ATTEND Orthopaedic Surgery
DX: S92.345D Nondisplaced fracture of fourth metatarsal bone, left foot, subsequent encounter for fracture with routine healing (principal); X58.XXXD Exposure to other specified factors, subsequent encounter
CPT/HCPCS: 73630

== ENCOUNTER → 2022-02-21 | Outpatient (CLI) | payer OTHER | LOC: ORTHO 10:11 | PROVIDERS: ATTEND Orthopaedic Surgery | DX: S92.302D Fracture of unspecified metatarsal bone(s), left foot, subsequent encounter for fracture with routine healing (principal); S93.602D Unspecified sprain of left foot, subsequent encounter; X58.XXXD Exposure to other specified factors, subsequent encounter | CPT/HCPCS: 99212 ==

== ENCOUNTER 2023-08-11 00:51 | Emergency (ER) | payer OTHER ==
[~2023-08-11] VITALS: Ht 167 cm; Wt 58.0 kg
[2023-08-11 00:54] VITALS: BP 144/100
[2023-08-11] MEDS ORDERED: RT-ALBUTEROL HFA 8.5 GM INHALER IH STA (01:19)
[2023-08-11] MEDS ORDERED: RT-Ipratropium/Albuterol NEB 3 ML VIAL INH ONE (02:15)
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
== END 2023-08-11 03:33 | disposition home or self-care (01) ==
LOC: EDUNIT# 00:51 → ER 00:55
DX: J45.901 Unspecified asthma with (acute) exacerbation (principal); F17.290 Nicotine dependence, other tobacco product, uncomplicated; Z20.822 Contact with and (suspected) exposure to COVID-19; Z71.6 Tobacco abuse counseling
CPT/HCPCS: 87636; 93005